=== PATIENT | female | born 1960 | race Caucasian/White ===

== ENCOUNTER 2017-02-28 14:20 | Observation (INO) ==
[2017-02-28 15:07] LABS: Basophils % 0.5 % (0.0-0.8); Eosinophils # 0.2 10*3/uL (0.0-0.87); Eosinophils % 2.6 % (0.00-10.9); Hematocrit 37.7 VOL% (35.7-47.0); Hemoglobin 12.5 GM/DL (12.0-16.0); Immature Granulocytes % 0.3 %; Immature Granulocytes Absolute 0.02 #; Lymphocytes % 30.8 % (21.3-54.2); Mean Corpuscular HGB Conc 33.2 GM/DL (32-36); Mean Corpuscular Hemoglobin 29 PG (27-34); Mean Corpuscular Volume 88.5 FL (87-102); Mean Platelet Volume 10.2 FL (9.6-12.0); Monocytes # 0.4 10*3/uL (0.11-0.8); Monocytes % 6.7 % (1.7-12.7); Neutrophils # 3.9 10*3/uL (1.4-7.4); Neutrophils % 59.1 % (38.7-73.9); Platelet Count 201 T/CUMM (130-400); Red Blood Count 4.26 MC/CUMM (3.8-5.5); Red Cell Distribution Width 12.9 % (9.3-17.3); White Blood Count 6.6 T/CUMM (4-12)
[2017-02-28 15:15] LABS: PT Patient Result 10.4 SECS
[2017-02-28 15:50] LABS: Alanine Aminotransferase 39 U/L (13-56); Albumin 3.6 G/DL (3.4-5.0); Alkaline Phosphatase 90 U/L (45-117); Aspartate Amino Transferase 32 U/L (0-37); Blood Urea Nitrogen 19 MG/DL (7-18); Calcium 8.6 MG/DL (8.5-10.1); Glucose 108 MG/DL (74-106); Osmolality,Calculated 279.5 MOS/KG (273-304); Potassium 4.2 MMOL/L (3.5-5.1); Sodium 139 MMOL/L (136-145); Total Protein 7.3 G/DL (6.4-8.3)
[2017-02-28 16:20] LABS: HIV Antigen/Antibody Result Nonreactive (Nonreactive); Hepatitis B Surface Ag Quant < 0.10 Index; Hepatitis B Surface Ag Result Negative (Negative); Hepatitis C Virus Ab Quant 0.15 Index; Hepatitis C Virus Ab Result Negative (Negative)
[2017-02-28 16:28] LABS: Apearance,Urine Slightly Hazy (Clear); Bilirubin,Urine Negative (Negative); Blood, Urine Negative (Negative); Glucose,Urine (UA) Negative (Negative); Ketones,Urine Negative (Negative); Mucus,Urine Occasional /LPF (Occasional); Nitrite,Urine Negative (Negative); Protein,Urine Negative; RBC,Urine 5 /HPF (0-4); Squamous Epithelial Cell,Urine Occasional /HPF (0-10); Urine Color Yellow (Yellow); Urine Urobilinogen < 2.0 EU/DL (0.2-1.0); WBC,Urine 9 /HPF (0-6)
[2017-02-28 16:34] LABS: Barbiturates Screen,Urine Negative (Negative); Benzodiazepines Screen,Urine Positive (Negative); Cannabinoid Screen,Urine Negative (Negative); Opiate Screen,Urine Negative (Negative); Phencyclidine Screen,Urine Negative (Negative)
[2017-02-28] MEDS ORDERED: ONDANSETRON ODT 4 MG TABLET PO STA (18:26)
[2017-02-28] MEDS ORDERED: ONDANSETRON ODT 4 MG TABLET PO ONE (18:27)
[2017-02-28] MEDS ORDERED: cefTRIAXone 1,000 MG in SODIUM CHLORIDE 0.9% 100 ML IV STA (19:09)
[2017-02-28] MEDS ORDERED: cefTRIAXone 1,000 MG VIAL ONE (19:24)
[2017-02-28] MEDS ORDERED: ONDANSETRON 4 MG/2 ML VIAL ONE (19:24)
[2017-02-28] MEDS ORDERED: ONDANSETRON 4 MG/2 ML VIAL IV STA (19:34)
[2017-02-28] MEDS ORDERED: ONDANSETRON 4 MG/2 ML VIAL IV PRN (20:25)
[2017-02-28] MEDS: cefTRIAXone 1,000 MG in SYRINGE 1 EACH IV SCH (21:36)
[2017-02-28] MEDS: ENOXAPARIN 40 MG/0.4 ML SYRINGE SUBCUT SCH (21:41)
[2017-02-28] MEDS ORDERED: ALBUTEROL 2.5 MG/3 ML NEB RESP TX PRN (22:08)
[2017-02-28] MEDS: DIAZEPAM 2 MG TABLET PO SCH (22:46)
[2017-02-28] MEDS: TOPIRAMATE 25 MG TABLET PO SCH (22:47)
[2017-03-01] MEDS: ACETAMINOPHEN 325 MG TABLET PO PRN ×3 (00:22→19:36)
[2017-03-01] MEDS: BECLOMETHASONE 40 MCG/PUFF INHALER 8.7 GM INH SCH ×2 (01:33→09:09)
[2017-03-01 05:12] LABS: Basophils % 0.5 % (0.0-0.8); Eosinophils # 0.2 10*3/uL (0.0-0.87); Eosinophils % 3.5 % (0.00-10.9); Hematocrit 36.2 VOL% (35.7-47.0); Hemoglobin 11.9 GM/DL (12.0-16.0); Immature Granulocytes % 0.3 %; Immature Granulocytes Absolute 0.02 #; Lymphocytes # 2.4 10*3/uL (1.4-4.0); Lymphocytes % 37.1 % (21.3-54.2); Mean Corpuscular HGB Conc 32.9 GM/DL (32-36); Mean Corpuscular Hemoglobin 29 PG (27-34); Mean Corpuscular Volume 88.7 FL (87-102); Mean Platelet Volume 10.8 FL (9.6-12.0); Monocytes # 0.5 10*3/uL (0.11-0.8); Monocytes % 8.5 % (1.7-12.7); Neutrophils # 3.2 10*3/uL (1.4-7.4); Neutrophils % 50.1 % (38.7-73.9); Platelet Count 179 T/CUMM (130-400); Red Blood Count 4.08 MC/CUMM (3.8-5.5); Red Cell Distribution Width 12.9 % (9.3-17.3); White Blood Count 6.3 T/CUMM (4-12)
[2017-03-01 05:47] LABS: Calcium 8.4 MG/DL (8.5-10.1); Osmolality,Calculated 281.3 MOS/KG (273-304); Potassium 3.8 MMOL/L (3.5-5.1); Thyroid Stimulating Hormone 2.65 uIU/ml (0.358-3.74)
[2017-03-01] MEDS ORDERED: INFLUENZA VIRUS VACCINE 0.5 ML SYRINGE IM ONE (09:00)
[2017-03-01] MEDS: TOPIRAMATE 25 MG TABLET PO SCH ×2 (09:09→20:38)
[2017-03-01] MEDS: DIAZEPAM 2 MG TABLET PO SCH (09:09)
[2017-03-01] MEDS: ASPIRIN EC 81 MG TABLET PO SCH (09:10)
[2017-03-01 16:03] LABS: Risk Ratio 6.03; VLDL CHOLESTEROL 29.2 MG/DL
[2017-03-01] MEDS: DIAZEPAM 5 MG TABLET PO SCH (20:40)
[2017-03-01] MEDS: cefTRIAXone 1,000 MG in SYRINGE 1 EACH IV SCH (20:41)
[2017-03-01] MEDS: ENOXAPARIN 40 MG/0.4 ML SYRINGE SUBCUT SCH (20:46)
[2017-03-02] MEDS: BECLOMETHASONE 40 MCG/PUFF INHALER 8.7 GM INH SCH ×3 (00:29→22:14)
[2017-03-02] MEDS: DIAZEPAM 5 MG TABLET PO SCH ×2 (08:36→22:02)
[2017-03-02] MEDS: ASPIRIN EC 81 MG TABLET PO SCH (08:36)
[2017-03-02] MEDS: TOPIRAMATE 25 MG TABLET PO SCH ×2 (08:36→22:02)
[2017-03-02] MEDS: cefTRIAXone 1,000 MG in SYRINGE 1 EACH IV SCH (22:04)
[2017-03-02] MEDS: ENOXAPARIN 40 MG/0.4 ML SYRINGE SUBCUT SCH (22:09)
[2017-03-03] MEDS: TOPIRAMATE 25 MG TABLET PO SCH (09:01)
[2017-03-03] MEDS: ASPIRIN EC 81 MG TABLET PO SCH (09:01)
[2017-03-03] MEDS: DIAZEPAM 5 MG TABLET PO SCH (09:01)
[2017-03-03] MEDS: BECLOMETHASONE 40 MCG/PUFF INHALER 8.7 GM INH SCH (09:01)
[2017-03-03 12:33] VITALS: BP 124/78
[2017-03-03] MEDS: ACETAMINOPHEN 325 MG TABLET PO PRN (14:17)
== END 2017-03-03 14:42 | disposition home or self-care (01) ==
LOC: N.ED 14:20 → N.EDINP 14:20 → N.4E 20:43
PROVIDERS: ADMIT Internal Medicine Infectious Disease; ATTEND Internal Medicine Infectious Disease

== ENCOUNTER 2018-11-05 05:44 | Inpatient (IN) ==
[2018-10-29 13:44] LABS: Basophils % 0.5 % (0.0-0.8); Eosinophils # 0.2 10*3/uL (0.0-0.87); Eosinophils % 1.7 % (0.00-10.9); Hematocrit 39.6 VOL% (35.7-47.0); Hemoglobin 12.8 GM/DL (12.0-16.0); Immature Granulocytes % 0.3 %; Immature Granulocytes Absolute 0.03 #; Lymphocytes # 2.1 10*3/uL (1.4-4.0); Mean Corpuscular HGB Conc 32.3 GM/DL (32-36); Mean Corpuscular Volume 88.8 FL (87-102); Mean Platelet Volume 9.8 FL (9.6-12.0); Monocytes % 7.3 % (1.7-12.7); Neutrophils % 66.2 % (38.7-73.9); Platelet Count 239 T/CUMM (130-400); Red Blood Count 4.46 MC/CUMM (3.8-5.5); Red Cell Distribution Width 13.5 % (9.3-17.3); White Blood Count 8.7 T/CUMM (4-12)
[2018-10-29 14:01] LABS: Calcium 9.5 MG/DL (8.5-10.1); Osmolality,Calculated 282.3 MOS/KG (273-304)
[2018-11-05] MEDS ORDERED: ACETAMINOPHEN 500 MG TABLET ONE (05:48)
[2018-11-05] MEDS ORDERED: DIAZEPAM 5 MG TABLET ONE (05:48)
[2018-11-05] MEDS ORDERED: ceFAZolin 1,000 MG VIAL ONE (05:48)
[2018-11-05] MEDS ORDERED: FAMOTIDINE 20 MG TABLET ONE (05:49)
[2018-11-05] MEDS ORDERED: ceFAZolin 1,000 MG in SYRINGE 1 EACH IV ONE (06:00)
[2018-11-05] MEDS ORDERED: DIAZEPAM 5 MG TABLET PO ONE (06:00)
[2018-11-05] MEDS ORDERED: ACETAMINOPHEN 500 MG TABLET PO ONE (06:00)
[2018-11-05] MEDS ORDERED: FAMOTIDINE 20 MG TABLET PO ONE (06:00)
[2018-11-05] MEDS: LACTATED RINGERS 1,000 ML IV SCH ×4 (06:25→20:35)
[2018-11-05] MEDS ORDERED: LIDOCAINE 2% 5 ML VIAL ONE ×3 (06:36→10:16)
[2018-11-05] MEDS ORDERED: ROPIVACAINE 0.5% 30 ML VIAL ONE ×2 (06:37→10:16)
[2018-11-05] MEDS ORDERED: MIDAZOLAM 2 MG/2 ML VIAL ONE (06:37)
[2018-11-05] MEDS ORDERED: fentaNYL 100 MCG/2 ML VIAL ONE (06:37)
[2018-11-05] MEDS ORDERED: DEXAMETHASONE 4 MG/1 ML VIAL ONE ×2 (06:37→09:51)
[2018-11-05 09:40] LABS: Apearance,Urine CLEAR (Clear); Bilirubin,Urine Negative (Negative); Blood, Urine Negative (Negative); Glucose,Urine (UA) Negative (Negative); Ketones,Urine Negative (Negative); Mucus,Urine Occasional /LPF (Occasional); Nitrite,Urine Negative (Negative); Protein,Urine Negative; RBC,Urine 1 /HPF (0-4); Squamous Epithelial Cell,Urine Occasional /HPF (0-10); Urine Color Yellow (Yellow); Urine Urobilinogen < 2.0 EU/DL (0.2-1.0); WBC,Urine <1 /HPF (0-6)
[2018-11-05] MEDS ORDERED: ONDANSETRON 4 MG/2 ML VIAL IV PRN (09:45)
[2018-11-05] MEDS ORDERED: MEPERIDINE 25 MG/1 ML VIAL IV PRN (09:45)
[2018-11-05] MEDS: HYDROmorphone 2 MG/1 ML VIAL IV PRN ×5 (09:50→21:08)
[2018-11-05] MEDS ORDERED: PROPOFOL 200 MG/20 ML VIAL IV ONE (09:50)
[2018-11-05] MEDS ORDERED: GLYCOPYRROLATE 0.4 MG/2 ML VIAL ONE (09:51)
[2018-11-05] MEDS ORDERED: KETOROLAC 30 MG/1 ML VIAL ONE (09:51)
[2018-11-05] MEDS ORDERED: SEVOFLURANE 1 UNIT/15 MINUTE INH ONE (09:51)
[2018-11-05] MEDS ORDERED: ONDANSETRON 4 MG/2 ML VIAL ONE (09:51)
[2018-11-05] MEDS ORDERED: ROCURONIUM 100 MG/10 ML VIAL IV ONE (09:52)
[2018-11-05] MEDS ORDERED: NEOSTIGMINE 10 MG/10 ML VIAL ONE (09:52)
[2018-11-05] MEDS ORDERED: PHENYLEPHRINE 1 MG/10 ML SYRINGE IV ONE (09:52)
[2018-11-05] MEDS ORDERED: SUCCINYLCHOLINE 200 MG/10 ML VIAL ONE (09:52)
[2018-11-05] MEDS ORDERED: LACTATED RINGERS 1,000 ML IV ONE (09:53)
[2018-11-05] MEDS ORDERED: ACETAMINOPHEN 1,000 MG/100 ML VIAL IV ONE (09:53)
[2018-11-05] MEDS ORDERED: ALBUTEROL/IPRATROPIUM 3 ML NEB RESP TX PRN (10:23)
[2018-11-05] MEDS ORDERED: HYDROmorphone 2 MG/1 ML VIAL IV PRN (10:23)
[2018-11-05] MEDS ORDERED: PROMETHAZINE 25 MG/1 ML VIAL IM PRN (10:23)
[2018-11-05] MEDS ORDERED: ACETAMINOPHEN 325 MG TABLET PO PRN (10:23)
[2018-11-05] MEDS ORDERED: PROMETHAZINE INJ 12.5 MG in SODIUM CHLORIDE 0.9% 50 ML IV PRN (11:30)
[2018-11-05] MEDS ORDERED: PROMETHAZINE 25 MG/1 ML VIAL ONE (11:36)
[2018-11-05] MEDS: ONDANSETRON 4 MG/2 ML VIAL IV PRN ×2 (15:38→21:07)
[2018-11-06] MEDS: LACTATED RINGERS 1,000 ML IV SCH ×4 (00:34→19:36)
[2018-11-06] MEDS: HYDROmorphone 2 MG/1 ML VIAL IV PRN ×4 (03:41→17:35)
[2018-11-06] MEDS: ONDANSETRON 4 MG/2 ML VIAL IV PRN ×3 (03:42→17:35)
[2018-11-06 05:46] LABS: Basophils % 0.1 % (0.0-0.8); Hematocrit 36.8 VOL% (35.7-47.0); Hemoglobin 11.6 GM/DL (12.0-16.0); Immature Granulocytes % 0.4 %; Immature Granulocytes Absolute 0.05 #; Lymphocytes # 1.2 10*3/uL (1.4-4.0); Lymphocytes % 9.3 % (21.3-54.2); Mean Corpuscular HGB Conc 31.5 GM/DL (32-36); Mean Corpuscular Volume 88.7 FL (87-102); Mean Platelet Volume 10.7 FL (9.6-12.0); Monocytes % 6.1 % (1.7-12.7); Neutrophils % 84.1 % (38.7-73.9); Platelet Count 196 T/CUMM (130-400); Red Blood Count 4.15 MC/CUMM (3.8-5.5); Red Cell Distribution Width 13.7 % (9.3-17.3)
[2018-11-06 06:06] LABS: Calcium 8.6 MG/DL (8.5-10.1); Osmolality,Calculated 284.1 MOS/KG (273-304)
[2018-11-06] MEDS: PANTOPRAZOLE 40 MG VIAL IV SCH (09:39)
[2018-11-06] MEDS: cefOXitin 2,000 MG in SYRINGE 1 EACH IV SCH ×3 (09:43→20:15)
[2018-11-06] MEDS ORDERED: PHENOL 1.4% THROAT SPRAY 177 ML BOTTLE PO PRN (12:32)
[2018-11-07] MEDS: cefOXitin 2,000 MG in SYRINGE 1 EACH IV SCH ×3 (00:35→13:55)
[2018-11-07] MEDS: LACTATED RINGERS 1,000 ML IV SCH ×3 (04:18→18:55)
[2018-11-07 06:06] LABS: Basophils % 0.2 % (0.0-0.8); Eosinophils % 0.2 % (0.00-10.9); Hematocrit 35.5 VOL% (35.7-47.0); Hemoglobin 11.1 GM/DL (12.0-16.0); Immature Granulocytes % 0.5 %; Immature Granulocytes Absolute 0.06 #; Lymphocytes # 1.4 10*3/uL (1.4-4.0); Lymphocytes % 12.5 % (21.3-54.2); Mean Corpuscular HGB Conc 31.3 GM/DL (32-36); Mean Corpuscular Volume 89.9 FL (87-102); Mean Platelet Volume 10.4 FL (9.6-12.0); Monocytes % 8.8 % (1.7-12.7); Neutrophils % 77.8 % (38.7-73.9); Platelet Count 174 T/CUMM (130-400); Red Blood Count 3.95 MC/CUMM (3.8-5.5); Red Cell Distribution Width 14.2 % (9.3-17.3); White Blood Count 11.5 T/CUMM (4-12)
[2018-11-07] MEDS: KETOROLAC 15 MG/1 ML VIAL IV PRN (07:47)
[2018-11-07] MEDS: PANTOPRAZOLE 40 MG VIAL IV SCH (08:29)
[2018-11-07] MEDS: ONDANSETRON 4 MG/2 ML VIAL IV PRN (21:45)
[2018-11-07] MEDS: HYDROmorphone 2 MG/1 ML VIAL IV PRN (21:45)
[2018-11-08] MEDS: KETOROLAC 15 MG/1 ML VIAL IV PRN (07:46)
[2018-11-08] MEDS ORDERED: HYDROcod/ACETAMIN 7.5-325 MG/15 ML UDCUP PO PRN (08:42)
[2018-11-08] MEDS: LACTATED RINGERS 1,000 ML IV SCH ×2 (09:16→16:38)
[2018-11-08] MEDS: PANTOPRAZOLE 40 MG VIAL IV SCH (09:37)
[2018-11-08] MEDS: HYDROcod/ACETAMIN 7.5-325 MG/15 ML UDCUP PO PRN ×3 (09:38→21:05)
[2018-11-09] MEDS: HYDROcod/ACETAMIN 7.5-325 MG/15 ML UDCUP PO PRN (08:50)
[2018-11-09] MEDS: PANTOPRAZOLE 40 MG VIAL IV SCH (08:53)
[2018-11-09] MEDS: LACTATED RINGERS 1,000 ML IV SCH (10:26)
[2018-11-09 11:02] VITALS: BP 118/72
== END 2018-11-09 11:43 | disposition home or self-care (01) | DRG 328 ==
LOC: N.OR 05:44 → N.SDSINP 05:45 → N.3E 14:24
PROVIDERS: ADMIT Surgery; ATTEND Surgery

== ENCOUNTER 2019-05-05 16:58 | Inpatient (IN) ==
[2019-05-05 19:06] LABS: Basophils % 0.6 % (0.0-0.8); Eosinophils # 0.5 10*3/uL (0.0-0.87); Eosinophils % 6.3 % (0.00-10.9); Hematocrit 39.2 VOL% (35.7-47.0); Hemoglobin 12.2 GM/DL (12.0-16.0); Immature Granulocytes % 0.3 %; Immature Granulocytes Absolute 0.02 #; Lymphocytes # 2.1 10*3/uL (1.4-4.0); Lymphocytes % 28.9 % (21.3-54.2); Mean Corpuscular HGB Conc 31.1 GM/DL (32-36); Mean Corpuscular Volume 89.5 FL (87-102); Mean Platelet Volume 10.1 FL (9.6-12.0); Monocytes % 6.9 % (1.7-12.7); Platelet Count 228 T/CUMM (130-400); Red Blood Count 4.38 MC/CUMM (3.8-5.5); Red Cell Distribution Width 14.3 % (9.3-17.3); White Blood Count 7.3 T/CUMM (4-12)
[2019-05-05] MEDS ORDERED: ALBUTEROL 2.5 MG/3 ML NEB RESP TX PRN (19:11)
[2019-05-05] MEDS ORDERED: traMADol 50 MG TABLET PO PRN (19:12)
[2019-05-05 19:23] LABS: Albumin 3.7 G/DL (3.4-5.0); Bilirubin,Total 0.5 MG/DL (0.2-1.0); Calcium 8.8 MG/DL (8.5-10.1); Osmolality,Calculated 277.4 MOS/KG (273-304); Total Protein 7.6 G/DL (6.4-8.3)
[2019-05-05] MEDS ORDERED: GLUCAGON 1 MG VIAL IM PRN (19:23)
[2019-05-05] MEDS ORDERED: DEXTROSE 10% 250 ML BAG IV PRN (19:23)
[2019-05-05] MEDS: PANTOPRAZOLE 40 MG TABLET PO SCH (21:17)
[2019-05-05] MEDS: BECLOMETHASONE 80 MCG/PUFF INHALER 8.7 GM INH SCH (21:17)
[2019-05-05] MEDS: MEROPENEM 500 MG in SODIUM CHLORIDE 0.9% 100 ML IV SCH (21:18)
[2019-05-05] MEDS: ONDANSETRON 4 MG/2 ML VIAL IV PRN (21:36)
[2019-05-05] MEDS: DIAZEPAM 5 MG TABLET PO SCH (21:36)
[2019-05-06] MEDS: MEROPENEM 500 MG in SODIUM CHLORIDE 0.9% 100 ML IV SCH ×4 (04:34→22:21)
[2019-05-06 05:03] LABS: Basophils % 0.4 % (0.0-0.8); Eosinophils # 0.6 10*3/uL (0.0-0.87); Hematocrit 37.2 VOL% (35.7-47.0); Hemoglobin 11.6 GM/DL (12.0-16.0); Immature Granulocytes % 0.3 %; Immature Granulocytes Absolute 0.02 #; Lymphocytes # 1.9 10*3/uL (1.4-4.0); Lymphocytes % 27.7 % (21.3-54.2); Mean Corpuscular HGB Conc 31.2 GM/DL (32-36); Mean Corpuscular Volume 88.6 FL (87-102); Mean Platelet Volume 10.1 FL (9.6-12.0); Monocytes % 8.9 % (1.7-12.7); Neutrophils % 53.7 % (38.7-73.9); Platelet Count 213 T/CUMM (130-400); Red Cell Distribution Width 14.4 % (9.3-17.3); White Blood Count 6.9 T/CUMM (4-12)
[2019-05-06 05:36] LABS: Calcium 9.1 MG/DL (8.5-10.1); Osmolality,Calculated 274.7 MOS/KG (273-304)
[2019-05-06] MEDS: ONDANSETRON 4 MG/2 ML VIAL IV PRN ×4 (07:10→22:20)
[2019-05-06] MEDS: BECLOMETHASONE 80 MCG/PUFF INHALER 8.7 GM INH SCH ×2 (08:00→22:30)
[2019-05-06] MEDS: atenoloL 25 MG TABLET PO SCH (09:53)
[2019-05-06] MEDS: CYANOCOBALAMIN 500 MCG TABLET PO SCH (09:53)
[2019-05-06] MEDS: MULTIVITAMIN (CENTRUM) TABLET PO SCH (09:53)
[2019-05-06] MEDS: DIAZEPAM 5 MG TABLET PO SCH ×2 (09:53→22:20)
[2019-05-06] MEDS: PANTOPRAZOLE 40 MG TABLET PO SCH ×2 (09:53→22:19)
[2019-05-06] MEDS: CHOLECALCIFEROL 1,000 UNIT TABLET PO SCH (09:54)
[2019-05-06] MEDS: CLOPIDOGREL 75 MG TABLET PO SCH (09:54)
[2019-05-07 05:48] LABS: Basophils % 0.5 % (0.0-0.8); Eosinophils # 0.6 10*3/uL (0.0-0.87); Eosinophils % 9.1 % (0.00-10.9); Hematocrit 36.4 VOL% (35.7-47.0); Hemoglobin 11.4 GM/DL (12.0-16.0); Immature Granulocytes % 0.2 %; Immature Granulocytes Absolute 0.01 #; Lymphocytes # 1.8 10*3/uL (1.4-4.0); Lymphocytes % 29.4 % (21.3-54.2); Mean Corpuscular HGB Conc 31.3 GM/DL (32-36); Mean Corpuscular Volume 88.8 FL (87-102); Mean Platelet Volume 10.2 FL (9.6-12.0); Monocytes % 7.3 % (1.7-12.7); Neutrophils % 53.5 % (38.7-73.9); Platelet Count 191 T/CUMM (130-400); Red Cell Distribution Width 14.3 % (9.3-17.3); White Blood Count 6.1 T/CUMM (4-12)
[2019-05-07 06:26] LABS: Calcium 8.8 MG/DL (8.5-10.1); Osmolality,Calculated 276.4 MOS/KG (273-304)
[2019-05-07] MEDS: SODIUM CHLORIDE 0.9% 1,000 ML IV SCH ×3 (06:42→21:50)
[2019-05-07] MEDS: MULTIVITAMIN (CENTRUM) TABLET PO SCH (09:54)
[2019-05-07] MEDS: DIAZEPAM 5 MG TABLET PO SCH ×2 (09:54→21:50)
[2019-05-07] MEDS: CYANOCOBALAMIN 500 MCG TABLET PO SCH (09:54)
[2019-05-07] MEDS: atenoloL 25 MG TABLET PO SCH (09:54)
[2019-05-07] MEDS: CHOLECALCIFEROL 1,000 UNIT TABLET PO SCH (09:54)
[2019-05-07] MEDS: CLOPIDOGREL 75 MG TABLET PO SCH (09:55)
[2019-05-07] MEDS: PANTOPRAZOLE 40 MG TABLET PO SCH ×2 (09:55→21:50)
[2019-05-07] MEDS: MEROPENEM 500 MG in SODIUM CHLORIDE 0.9% 100 ML IV SCH ×4 (09:55→21:50)
[2019-05-07] MEDS: BECLOMETHASONE 80 MCG/PUFF INHALER 8.7 GM INH SCH ×2 (10:00→21:50)
[2019-05-07] MEDS: ONDANSETRON 4 MG/2 ML VIAL IV PRN ×2 (15:21→22:01)
[2019-05-07] MEDS: INSULIN LISPRO 100 UNIT/ML SUBCUT SCH (19:03)
[2019-05-08] MEDS: MEROPENEM 500 MG in SODIUM CHLORIDE 0.9% 100 ML IV SCH ×4 (02:46→21:00)
[2019-05-08 05:22] LABS: Basophils % 0.3 % (0.0-0.8); Eosinophils # 0.6 10*3/uL (0.0-0.87); Eosinophils % 9.3 % (0.00-10.9); Hematocrit 35.3 VOL% (35.7-47.0); Hemoglobin 11.1 GM/DL (12.0-16.0); Immature Granulocytes % 0.2 %; Immature Granulocytes Absolute 0.01 #; Lymphocytes # 1.7 10*3/uL (1.4-4.0); Lymphocytes % 26.7 % (21.3-54.2); Mean Corpuscular HGB Conc 31.4 GM/DL (32-36); Mean Corpuscular Volume 87.4 FL (87-102); Mean Platelet Volume 9.9 FL (9.6-12.0); Monocytes % 7.7 % (1.7-12.7); Neutrophils % 55.8 % (38.7-73.9); Platelet Count 168 T/CUMM (130-400); Red Blood Count 4.04 MC/CUMM (3.8-5.5); Red Cell Distribution Width 14.3 % (9.3-17.3); White Blood Count 6.2 T/CUMM (4-12)
[2019-05-08 05:52] LABS: Calcium 8.6 MG/DL (8.5-10.1); Osmolality,Calculated 279.3 MOS/KG (273-304)
[2019-05-08] MEDS: ONDANSETRON 4 MG/2 ML VIAL IV PRN ×3 (08:47→21:02)
[2019-05-08] MEDS: SODIUM CHLORIDE 0.9% 1,000 ML IV SCH ×2 (08:50→21:00)
[2019-05-08] MEDS: INSULIN LISPRO 100 UNIT/ML SUBCUT SCH ×2 (08:51→18:04)
[2019-05-08] MEDS: DIAZEPAM 5 MG TABLET PO SCH ×2 (09:51→21:03)
[2019-05-08] MEDS: PANTOPRAZOLE 40 MG TABLET PO SCH ×2 (09:52→21:04)
[2019-05-08] MEDS: CHOLECALCIFEROL 1,000 UNIT TABLET PO SCH (09:52)
[2019-05-08] MEDS: atenoloL 25 MG TABLET PO SCH (09:52)
[2019-05-08] MEDS: MULTIVITAMIN (CENTRUM) TABLET PO SCH (09:52)
[2019-05-08] MEDS: CLOPIDOGREL 75 MG TABLET PO SCH (09:52)
[2019-05-08] MEDS: CYANOCOBALAMIN 500 MCG TABLET PO SCH (09:53)
[2019-05-08] MEDS: BECLOMETHASONE 80 MCG/PUFF INHALER 8.7 GM INH SCH ×2 (09:53→21:05)
[2019-05-09 04:48] LABS: Basophils % 0.3 % (0.0-0.8); Eosinophils # 0.7 10*3/uL (0.0-0.87); Eosinophils % 9.1 % (0.00-10.9); Hematocrit 37.3 VOL% (35.7-47.0); Hemoglobin 11.7 GM/DL (12.0-16.0); Immature Granulocytes % 0.3 %; Immature Granulocytes Absolute 0.02 #; Lymphocytes # 2.2 10*3/uL (1.4-4.0); Lymphocytes % 30.8 % (21.3-54.2); Mean Corpuscular HGB Conc 31.4 GM/DL (32-36); Mean Corpuscular Volume 88.8 FL (87-102); Mean Platelet Volume 10.1 FL (9.6-12.0); Neutrophils % 52.5 % (38.7-73.9); Platelet Count 193 T/CUMM (130-400); Red Cell Distribution Width 14.3 % (9.3-17.3); White Blood Count 7.1 T/CUMM (4-12)
[2019-05-09] MEDS: MEROPENEM 500 MG in SODIUM CHLORIDE 0.9% 100 ML IV SCH ×3 (05:24→17:54)
[2019-05-09 05:25] LABS: Calcium 8.7 MG/DL (8.5-10.1); Osmolality,Calculated 280.1 MOS/KG (273-304)
[2019-05-09] MEDS: SODIUM CHLORIDE 0.9% 1,000 ML IV SCH ×2 (05:25→12:01)
[2019-05-09] MEDS: ONDANSETRON 4 MG/2 ML VIAL IV SCH ×4 (05:30→23:19)
[2019-05-09] MEDS: INSULIN LISPRO 100 UNIT/ML SUBCUT SCH ×2 (08:42→17:54)
[2019-05-09] MEDS: DIAZEPAM 5 MG TABLET PO SCH ×2 (09:01→20:59)
[2019-05-09] MEDS: CYANOCOBALAMIN 500 MCG TABLET PO SCH (09:01)
[2019-05-09] MEDS: PANTOPRAZOLE 40 MG TABLET PO SCH ×2 (09:01→20:59)
[2019-05-09] MEDS: MULTIVITAMIN (CENTRUM) TABLET PO SCH (09:02)
[2019-05-09] MEDS: CHOLECALCIFEROL 1,000 UNIT TABLET PO SCH (09:02)
[2019-05-09] MEDS: atenoloL 25 MG TABLET PO SCH (09:02)
[2019-05-09] MEDS: CLOPIDOGREL 75 MG TABLET PO SCH (09:02)
[2019-05-09] MEDS: BECLOMETHASONE 80 MCG/PUFF INHALER 8.7 GM INH SCH ×2 (09:04→21:00)
[2019-05-09] MEDS: LEVOFLOXACIN INJ 750 MG in PREMIX 1 EACH IV SCH (17:54)
[2019-05-10] MEDS: SODIUM CHLORIDE 0.9% 1,000 ML IV SCH ×2 (00:12→09:32)
[2019-05-10 05:17] LABS: Basophils % 0.4 % (0.0-0.8); Eosinophils # 0.6 10*3/uL (0.0-0.87); Eosinophils % 8.5 % (0.00-10.9); Hematocrit 38.7 VOL% (35.7-47.0); Immature Granulocytes % 0.3 %; Immature Granulocytes Absolute 0.02 #; Lymphocytes # 1.7 10*3/uL (1.4-4.0); Lymphocytes % 24.7 % (21.3-54.2); Mean Corpuscular Volume 89.2 FL (87-102); Mean Platelet Volume 9.8 FL (9.6-12.0); Monocytes % 5.4 % (1.7-12.7); Neutrophils % 60.7 % (38.7-73.9); Platelet Count 200 T/CUMM (130-400); Red Blood Count 4.34 MC/CUMM (3.8-5.5); White Blood Count 6.7 T/CUMM (4-12)
[2019-05-10 05:25] LABS: Calcium 8.9 MG/DL (8.5-10.1); Osmolality,Calculated 276.4 MOS/KG (273-304)
[2019-05-10] MEDS: ONDANSETRON 4 MG/2 ML VIAL IV SCH ×2 (06:06→12:10)
[2019-05-10] MEDS: DIAZEPAM 5 MG TABLET PO SCH (08:29)
[2019-05-10] MEDS: MULTIVITAMIN (CENTRUM) TABLET PO SCH (08:29)
[2019-05-10] MEDS: CYANOCOBALAMIN 500 MCG TABLET PO SCH (08:30)
[2019-05-10] MEDS: PANTOPRAZOLE 40 MG TABLET PO SCH (08:30)
[2019-05-10] MEDS: CHOLECALCIFEROL 1,000 UNIT TABLET PO SCH (08:30)
[2019-05-10] MEDS: CLOPIDOGREL 75 MG TABLET PO SCH (08:30)
[2019-05-10] MEDS: atenoloL 25 MG TABLET PO SCH (08:30)
[2019-05-10] MEDS: INSULIN LISPRO 100 UNIT/ML SUBCUT SCH (08:31)
[2019-05-10] MEDS: BECLOMETHASONE 80 MCG/PUFF INHALER 8.7 GM INH SCH (08:32)
[2019-05-10] MEDS ORDERED: ERGOCALCIFEROL 50,000 UNIT CAPSULE PO SCH (09:00)
[2019-05-10 12:52] VITALS: BP 115/59
[2019-05-10] MEDS: LEVOFLOXACIN INJ 750 MG in PREMIX 1 EACH IV SCH (13:25)
[2019-05-10] MEDS ORDERED: LACTOBACILLUS RHAMNOSUS GG CAPSULE PO SCH (21:00)
== END 2019-05-10 15:27 | disposition home health service (06) | DRG 394 ==
LOC: PREOBSVTOIN 17:02 → N.5E 17:03 → SUATTDRO 17:03
PROVIDERS: ADMIT Internal Medicine; ATTEND Internal Medicine

== ENCOUNTER 2019-06-01 07:14 | Observation (INO) ==
[2019-06-01] MEDS ORDERED: ONDANSETRON 4 MG/2 ML VIAL IV PRN ×2 (08:25→08:36)
[2019-06-01] MEDS: LACTATED RINGERS 1,000 ML IV SCH (08:34)
[2019-06-01] MEDS ORDERED: traMADol 50 MG TABLET PO PRN (08:44)
[2019-06-01] MEDS ORDERED: PROMETHAZINE 25 MG TABLET PO PRN (08:44)
[2019-06-01] MEDS ORDERED: ERGOCALCIFEROL 50,000 UNIT CAPSULE PO SCH (09:00)
[2019-06-01] MEDS ORDERED: DIAZEPAM 2 MG TABLET PO SCH (09:00)
[2019-06-01] MEDS ORDERED: propofoL 200 MG/20 ML VIAL IV ONE (10:00)
[2019-06-01] MEDS ORDERED: LIDOCAINE 2% 5 ML VIAL ONE (10:00)
[2019-06-01] MEDS: SODIUM CHLORIDE 0.45% 1,000 ML IV SCH ×2 (11:18→22:24)
[2019-06-01] MEDS: ALBUTEROL 2.5 MG/3 ML NEB RESP TX SCH ×3 (11:19→19:46)
[2019-06-01] MEDS: LACTOBACILLUS RHAMNOSUS GG CAPSULE PO SCH ×2 (11:20→22:27)
[2019-06-01] MEDS: CYANOCOBALAMIN 500 MCG TABLET PO SCH (11:20)
[2019-06-01] MEDS: atenoloL 50 MG TABLET PO SCH (11:21)
[2019-06-01] MEDS: CHOLECALCIFEROL 1,000 UNIT TABLET PO SCH (11:22)
[2019-06-01] MEDS: CLOPIDOGREL 75 MG TABLET PO SCH (11:22)
[2019-06-01] MEDS: PANTOPRAZOLE 40 MG TABLET PO SCH ×2 (11:22→22:27)
[2019-06-01] MEDS: MULTIVITAMIN (CENTRUM) TABLET PO SCH (11:23)
[2019-06-01] MEDS: CIPROFLOXACIN INJ 400 MG in PREMIX 1 EACH IV SCH ×2 (11:31→22:27)
[2019-06-01] MEDS: BECLOMETHASONE 80 MCG/PUFF INHALER 8.7 GM INH SCH ×2 (13:02→22:28)
[2019-06-01] MEDS: MAGNESIUM OXIDE 400 MG TABLET PO SCH (13:23)
[2019-06-01] MEDS ORDERED: IMIPRAMINE 25 MG TABLET PO SCH (21:00)
[2019-06-02] MEDS: ALBUTEROL 2.5 MG/3 ML NEB RESP TX SCH ×2 (00:09→07:17)
[2019-06-02 05:42] LABS: Basophils % 0.4 % (0.0-0.8); Eosinophils # 0.4 10*3/uL (0.0-0.87); Eosinophils % 7.6 % (0.00-10.9); Hemoglobin 11.2 GM/DL (12.0-16.0); Immature Granulocytes % 0.2 %; Immature Granulocytes Absolute 0.01 #; Lymphocytes # 1.8 10*3/uL (1.4-4.0); Lymphocytes % 32.6 % (21.3-54.2); Mean Platelet Volume 10.5 FL (9.6-12.0); Monocytes % 9.5 % (1.7-12.7); Neutrophils % 49.7 % (38.7-73.9); Platelet Count 178 T/CUMM (130-400); Red Blood Count 4.07 MC/CUMM (3.8-5.5); Red Cell Distribution Width 13.5 % (9.3-17.3); White Blood Count 5.6 T/CUMM (4-12)
[2019-06-02 06:03] LABS: Calcium 8.8 MG/DL (8.5-10.1); Osmolality,Calculated 273.5 MOS/KG (273-304)
[2019-06-02] MEDS ORDERED: DIAZEPAM 5 MG TABLET PO SCH (09:00)
[2019-06-02] MEDS: SODIUM CHLORIDE 0.45% 1,000 ML IV SCH ×2 (09:15→09:16)
[2019-06-02] MEDS: LACTATED RINGERS 1,000 ML IV SCH (09:16)
[2019-06-02] MEDS: MULTIVITAMIN (CENTRUM) TABLET PO SCH (09:16)
[2019-06-02] MEDS: MAGNESIUM OXIDE 400 MG TABLET PO SCH (09:17)
[2019-06-02] MEDS: LACTOBACILLUS RHAMNOSUS GG CAPSULE PO SCH (09:17)
[2019-06-02] MEDS: CLOPIDOGREL 75 MG TABLET PO SCH (09:17)
[2019-06-02] MEDS: PANTOPRAZOLE 40 MG TABLET PO SCH (09:17)
[2019-06-02] MEDS: atenoloL 50 MG TABLET PO SCH (09:18)
[2019-06-02] MEDS: BECLOMETHASONE 80 MCG/PUFF INHALER 8.7 GM INH SCH (09:18)
[2019-06-02] MEDS: CHOLECALCIFEROL 1,000 UNIT TABLET PO SCH (09:19)
[2019-06-02] MEDS: CYANOCOBALAMIN 500 MCG TABLET PO SCH (09:19)
[2019-06-02] MEDS: CIPROFLOXACIN INJ 400 MG in PREMIX 1 EACH IV SCH (09:25)
[2019-06-02 11:44] VITALS: BP 104/89
== END 2019-06-02 12:16 | disposition home health service (06) ==
LOC: N.3E 07:14 → N.GILAB 07:14
PROVIDERS: ADMIT Internal Medicine Gastroenterology; ATTEND Internal Medicine Gastroenterology

== ENCOUNTER 2021-04-28 09:21 | Inpatient (IN) ==
[2021-04-28] MEDS ORDERED: ONDANSETRON 4 MG/2 ML VIAL IV STA (10:16)
[2021-04-28] MEDS ORDERED: SODIUM CHLORIDE 0.9% 1,000 ML IV STA (10:16)
[2021-04-28 10:20] LABS: Basophils % 0.5 % (0.0-0.8); Eosinophils # 0.2 10*3/uL (0.0-0.87); Eosinophils % 3.1 % (0.00-10.9); Hematocrit 39.6 VOL% (35.7-47.0); Hemoglobin 12.9 GM/DL (12.0-16.0); Immature Granulocytes % 0.2 %; Immature Granulocytes Absolute 0.01 #; Lymphocytes # 1.7 10*3/uL (1.4-4.0); Lymphocytes % 30.7 % (21.3-54.2); Mean Corpuscular HGB Conc 32.6 GM/DL (32-36); Mean Corpuscular Volume 85.5 FL (87-102); Monocytes % 8.1 % (1.7-12.7); Neutrophils % 57.4 % (38.7-73.9); Platelet Count 215 T/CUMM (130-400); Red Blood Count 4.63 MC/CUMM (3.8-5.5); Red Cell Distribution Width 12.9 % (9.3-17.3); White Blood Count 5.5 T/CUMM (4-12)
[2021-04-28 10:36] LABS: Albumin 3.7 G/DL (3.4-5.0); Bilirubin,Total 0.6 MG/DL (0.20-1.00); Calcium 8.7 MG/DL (8.5-10.1); Osmolality,Calculated 277.7 MOS/KG (273-304); Potassium 4.1 MMOL/L (3.5-5.1); Total Protein 7.7 G/DL (6.4-8.2)
[2021-04-28] MEDS ORDERED: ACETAMINOPHEN 325 MG TABLET PO PRN (12:39)
[2021-04-28] MEDS ORDERED: HYDROmorphone 2 MG/1 ML VIAL IV PRN (12:39)
[2021-04-28] MEDS: SODIUM CHLORIDE 0.45% 1,000 ML IV SCH (13:09)
[2021-04-28] MEDS ORDERED: HYDROcod/ACETAMIN 7.5-325 MG/15 ML UDCUP PO PRN (22:13)
[2021-04-28] MEDS ORDERED: ONDANSETRON ODT 4 MG TABLET PO PRN (22:13)
[2021-04-28] MEDS: ESCITALOPRAM 10 MG TABLET PO SCH (22:35)
[2021-04-28] MEDS: DIAZEPAM 5 MG TABLET PO SCH (22:35)
[2021-04-29] MEDS: SODIUM CHLORIDE 0.45% 1,000 ML IV SCH ×4 (02:14→21:05)
[2021-04-29] MEDS ORDERED: DEXTROSE 10% 250 ML BAG IV PRN (06:33)
[2021-04-29] MEDS ORDERED: GLUCAGON 1 MG VIAL IM PRN (06:33)
[2021-04-29] MEDS: PYRIDOSTIGMINE 60 MG TABLET PO SCH ×4 (08:36→21:05)
[2021-04-29] MEDS: MULTIVITAMIN (CENTRUM) TABLET PO SCH (08:36)
[2021-04-29] MEDS: CHOLECALCIFEROL 1,000 UNIT TABLET PO SCH (08:36)
[2021-04-29] MEDS: metFORMIN 500 MG TABLET PO SCH (08:37)
[2021-04-29] MEDS: buPROPion SR 100 MG TABLET PO SCH (08:37)
[2021-04-29] MEDS: PANTOPRAZOLE 40 MG TABLET PO SCH ×2 (08:39→21:05)
[2021-04-29] MEDS ORDERED: FLUTICASONE 50 MCG NASAL SPRAY 16 GM BOTTLE BOTH NARES SCH (09:00)
[2021-04-29] MEDS ORDERED: PANTOPRAZOLE 40 MG TABLET PO SCH (09:00)
[2021-04-29] MEDS: ONDANSETRON 4 MG/2 ML VIAL IV PRN (16:14)
[2021-04-29] MEDS ORDERED: ATORVASTATIN 20 MG TABLET PO SCH (21:00)
[2021-04-29] MEDS: ESCITALOPRAM 10 MG TABLET PO SCH (21:05)
[2021-04-29] MEDS: DIAZEPAM 5 MG TABLET PO SCH (21:05)
[2021-04-30] MEDS: SODIUM CHLORIDE 0.45% 1,000 ML IV SCH ×2 (05:07→13:26)
[2021-04-30] MEDS ORDERED: ONDANSETRON 4 MG/2 ML VIAL ONE ×2 (08:29→09:10)
[2021-04-30] MEDS ORDERED: propofoL 200 MG/20 ML VIAL IV ONE (08:29)
[2021-04-30] MEDS ORDERED: ROCURONIUM 50 MG/5 ML VIAL IV ONE (08:29)
[2021-04-30] MEDS ORDERED: fentaNYL 100 MCG/2 ML VIAL ONE (08:29)
[2021-04-30] MEDS ORDERED: LIDOCAINE 2% 5 ML VIAL ONE (08:29)
[2021-04-30] MEDS ORDERED: MIDAZOLAM 2 MG/2 ML VIAL ONE (08:29)
[2021-04-30] MEDS: PANTOPRAZOLE 40 MG TABLET PO SCH (08:32)
[2021-04-30] MEDS: PYRIDOSTIGMINE 60 MG TABLET PO SCH ×3 (08:32→16:20)
[2021-04-30] MEDS ORDERED: LIDOCAINE 1%/EPI INJ 20 ML VIAL ONE (08:33)
[2021-04-30] MEDS ORDERED: BUPIVACAINE MPF 0.25% 30 ML VIAL ONE (08:33)
[2021-04-30] MEDS ORDERED: TISSUE ADHESIVE 1 EACH APPLICATOR TOP ONE (08:33)
[2021-04-30] MEDS ORDERED: ePHEDrine 50 MG/ML VIAL ONE (09:08)
[2021-04-30] MEDS ORDERED: ACETAMINOPHEN INJ 1,000 MG/100 ML VIAL IV ONE (09:10)
[2021-04-30] MEDS ORDERED: ceFAZolin 1,000 MG VIAL ONE (09:12)
[2021-04-30] MEDS ORDERED: NEOSTIGMINE 10 MG/10 ML VIAL ONE (09:29)
[2021-04-30] MEDS ORDERED: GLYCOPYRROLATE 0.4 MG/2 ML VIAL ONE (09:29)
[2021-04-30] MEDS ORDERED: KETOROLAC 30 MG/1 ML VIAL ONE (09:35)
[2021-04-30] MEDS ORDERED: SEVOFLURANE 1 UNIT/15 MINUTE INH ONE (09:36)
[2021-04-30] MEDS ORDERED: ONDANSETRON 4 MG/2 ML VIAL IV PRN ×2 (10:03→12:09)
[2021-04-30] MEDS ORDERED: HYDROmorphone 2 MG/1 ML VIAL IV PRN ×2 (10:03→12:09)
[2021-04-30] MEDS: ONDANSETRON 4 MG/2 ML VIAL IV PRN (11:51)
[2021-04-30] MEDS ORDERED: KETOROLAC 15 MG/1 ML VIAL IV SCH (12:30)
[2021-04-30] MEDS: buPROPion SR 100 MG TABLET PO SCH (13:00)
[2021-04-30] MEDS: CHOLECALCIFEROL 1,000 UNIT TABLET PO SCH (13:00)
[2021-04-30] MEDS: MULTIVITAMIN (CENTRUM) TABLET PO SCH (13:00)
[2021-04-30] MEDS: metFORMIN 500 MG TABLET PO SCH (13:00)
[2021-04-30 16:01] VITALS: BP 105/55
== END 2021-04-30 17:25 | disposition home health service (06) | DRG 354 ==
LOC: N.ED 09:21 → N.EDINP 12:39 → N.3E 19:49
PROVIDERS: ADMIT Surgery; ATTEND Surgery